=== PATIENT | female | born 1945 | race Caucasian/White ===

== ENCOUNTER 2020-01-14 19:10 | Observation (INO) | payer OTHER ==
--- OUTSIDE RECORDS SUMMARY | 2020-01-14 19:13 | XMS REPORT | Continuity of Care Document ---
:1945 Author Organization [facility] t Address [address] [place] [address] Care Team Providers Name Role Phone Tegan العلي Bee Attending Clinician Doctor Unassigned, Name Attending Clinician Unavailable Problems This patient has no known problems. Allergies, Adverse Reactions, Alerts This patient has no known allergies or adverse reactions. Medications This patient has no known medications. Procedures This patient has no known procedures. Encounters Start End Encounter Admission Attending Care Care Encounter Source Date/Time Date/Time Type Type Clinicians Facility Department ID 2019-08-24 2019-08-24 Emergency Benjamín Javed [facility] [id number] 13:50:22 14:22:00 Bee Dillon [id number] [place] [id number] [place] [id number] 2019-08-24 2019-08-24 Orders Doctor ANGEL [id number] 00:00:00 00:00:00 Only UnassignedGILL [id number] [place] [facility] [id number] Results This patient has no known results.
[2020-01-14 19:55] LABS: Protime INR 0.96
[2020-01-14 19:56] LABS: Absolute Lymphocytes (CBC) 2.5 K/uL (0.7-4.9); Basophils % 0.7 % (0-1.3); Hematocrit 42.1 % (36.0-45.0); Lymphocytes % 24.6 % (15.3-44.8); MPV 10.5 fL (7.6-11.3); RBC Red Blood Cell Count 4.43 M/uL (3.86-4.86)
--- NOTE | 2020-01-14 20:01 | EDPHYS ---
Physician Documentation [facility] Name: Kacie Regalado Age: 75 yrs Sex: Female : 1945 Arrival Date: 01/14/2020 Time: 19:12 Bed 5 Private MD: ED Physician Felipe Mckeon HPI: 01/13 19:48 This 75 yrs old Female presents to ER via EMS with complaints of chest pain. nuno 19:48 The patient or guardian reports chest pain that is located primarily in the substernal nuno area, anterior chest wall. Onset: 2 hour(s) ago. The pain radiates to. Associated signs and symptoms: The patient has no apparent associated signs or symptoms. The chest pain is described as a heaviness, a pressure. Duration: The patient or guardian reports a single episode, that is still ongoing. Severity of pain: At its worst the pain was mild moderate in the emergency department the pain is unchanged. It is unknown whether or not the patient has had similar symptoms in the past. Historical: - Allergies: 19:22 No Known Allergies; em - Home Meds: 19:22 Lipitor Oral [Active]; Plavix Oral [Active]; em - PMHx: 19:22 Hyperlipidemia; Hypertension; em - PSHx: 19:22 Heart stents; em - Immunization history:: Adult Immunizations up to date. - Social history:: Smoking status: Patient reports the use of cigarette tobacco products, smokes one-half pack cigarettes per day. - Family history:: not pertinent. ROS: 19:48 Constitutional: Negative for fever, chills, and weight loss, Eyes: Negative for injury, nuno pain, redness, and discharge, ENT: Negative for injury, pain, and discharge, Neck: Negative for injury, pain, and swelling, Respiratory: Negative for shortness of breath, cough, wheezing, and pleuritic chest pain, Abdomen/GI: Negative for abdominal pain, nausea, vomiting, diarrhea, and constipation, Back: Negative for injury and pain, : Negative for injury, bleeding, discharge, and swelling, MS/Extremity: Negative for injury and deformity, Skin: Negative for injury, rash, and discoloration, Neuro: Negative for headache, weakness, numbness, tingling, and seizure, Psych: Negative for depression, anxiety, suicide ideation, homicidal ideation, and hallucinations, Allergy/Immunology: Negative for hives, rash, and allergies, Endocrine: Negative for neck swelling, polydipsia, polyuria, polyphagia, and marked weight changes. 19:48 Cardiovascular: Positive for chest pain. 19:48 Respiratory: Positive for shortness of breath, at rest. Exam: 19:48 Constitutional: This is a well developed, well nourished patient who is awake, alert, nuno and in no acute distress. Head/Face: Normocephalic, atraumatic. Eyes: Pupils equal round and reactive to light, extra-ocular motions intact. Lids and lashes normal. Conjunctiva and sclera are non-icteric and not injected. Cornea within normal limits. Periorbital areas with no swelling, redness, or edema. ENT: Nares patent. No nasal discharge, no septal abnormalities noted. Tympanic membranes are normal and external auditory canals are clear. Oropharynx with no redness, swelling, or masses, exudates, or evidence of obstruction, uvula midline. Mucous membranes moist. Neck: Trachea midline, no thyromegaly or masses palpated, and no cervical lymphadenopathy. Supple, full range of motion without nuchal rigidity, or vertebral point tenderness. No Meningismus. Chest/axilla: Normal chest wall appearance and motion. Nontender with no deformity. No lesions are appreciated. Respiratory: Lungs have equal breath sounds bilaterally, clear to auscultation and percussion. No rales, rhonchi or wheezes noted. No increased work of breathing, no retractions or nasal flaring. Abdomen/GI: Soft, non-tender, with normal bowel sounds. No distension or tympany. No guarding or rebound. No evidence of tenderness throughout. Back: No spinal tenderness. No costovertebral tenderness. Full range of motion. Female : Normal external genitalia. Skin: Warm, dry with normal turgor. Normal color with no rashes, no lesions, and no evidence of cellulitis. MS/ Extremity: Pulses equal, no cyanosis. Neurovascular intact. Full, normal range of motion. Neuro: Awake and alert, GCS 15, oriented to person, place, time, and situation. Cranial nerves II-XII grossly intact. Motor strength 5/5 in all extremities. Sensory grossly intact. Cerebellar exam normal. Normal gait. Psych: Awake, alert, with orientation to person, place and time. Behavior, mood, and affect are within normal limits. 19:48 Cardiovascular: Rate: tachycardic, Rhythm: regular, Pulses: Pulses are 4+ in bilateral radial, brachial, femoral, popliteal, posterior tibial and and dorsalis pedis arteries.. Heart sounds: normal, Edema: is not appreciated, JVD: is not appreciated. Vital Signs: 19:15 BP 147 / 44; Pulse 118; Resp 20; Temp 97.5; Pulse Ox 98% on R/A; Weight 92.08 kg; em Height 5 ft. 3 in. (160.02 cm); Pain 5/10; 19:27 BP 136 / 79; ll1 19:43 BP 138 / 64; Pulse 89; Resp 19; Pulse Ox 99% ; ll1 21:44 BP 115 / 66; Pulse 67; Resp 18; Pulse Ox 97% ; ll1 19:15 Body Mass Index 35.96 (92.08 kg, 160.02 cm) em MDM: 19:12 Patient medically screened. nuno 19:53 Differential diagnosis: abnormal EKG, anxiety, coronary artery disease pancreatitis, nuno pericarditis, stable angina, unstable angina. HEART Score: History: Moderately Suspicious (1), ECG: Non specific repolarization disturbance / LBTB / PM (1), Age: > 45 and < 65 years (1), Risk Factors: > or = 3 Risk factors for atherosclerotic disease (2), [Hypercholesterolemia] [Hypertension] [+ Family HX] [Obesity] Troponin: < or = 1 x Normal Limit (0). The patient was given aspirin in the Emergency Department. The patient's deep vein thrombosis risk score was calculated as follows: Total Score: 0. This patient was found to be at low risk for a deep vein thrombosis by using the Well's assessment criteria. The patient's pulmonary embolism risk score was calculated as follows: Total Score: 0-2 points. This patient was found to be at low risk for a pulmonary embolism by using the Well's assessment criteria. SUKHDEEP Risk Score: TOTAL SCORE = 0. Data reviewed: vital signs, nurses notes, lab test result(s), EKG, radiologic studies, plain films. Data interpreted: monitoring engineer: rate is 126 beats/min, rhythm is regular, Pulse oximetry: on room air is 99 %. Test interpretation: by ED physician or midlevel provider: ECG, plain radiologic studies. Counseling: I had a detailed discussion with the patient and/or guardian regarding: the historical points, exam findings, and any diagnostic results supporting the discharge/admit diagnosis, the presence of at least one elevated blood pressure reading (>120/80) during this emergency department visit, lab results, radiology results, the need for further work-up and treatment in the hospital. 01/13 19:23 Order name: Basic Metabolic Panel [facility] 01/13 19:23 Order name: CBC with Diff [facility] 01/13 19:23 Order name: LFT's; Complete Time: 20:22 [facility] 01/13 19:23 Order name: Magnesium; Complete Time: 20:22 [facility] 01/13 19:23 Order name: NT PRO-BNP; Complete Time: 20:22 [facility] 01/13 19:23 Order name: PT-INR; Complete Time: 21:25 [facility] 01/13 19:23 Order name: Troponin (emerg Dept Use Only); Complete Time: 20:22 [facility] 01/13 19:23 Order name: XRAY Chest (1 view); Complete Time: 20:22 [facility] 01/13 19:24 Order name: Basic Metabolic Panel; Complete Time: 20:22 [facility] 01/13 19:24 Order name: CBC with Automated Diff; Complete Time: 21:25 [facility] 01/13 19:46 Order name: TSH; Complete Time: 20:22 [facility] 01/13 19:46 Order name: Lipase; Complete Time: 20:22 [facility] 01/13 19:23 Order name: EKG; Complete Time: 19:24 [facility] 01/13 19:23 Order name: Cardiac monitoring; Complete Time: 19:27 [facility] 01/13 19:23 Order name: EKG - Nurse/Tech; Complete Time: 19:27 [facility] 01/13 19:23 Order name: IV Saline Lock; Complete Time: 19:27 [facility] 01/13 19:23 Order name: Labs collected and sent; Complete Time: 19:26 [facility] 01/13 19:23 Order name: O2 Per Protocol; Complete Time: 19:36 [facility] 01/13 19:23 Order name: O2 Sat Monitoring; Complete Time: 19:26 [facility] Administered Medications: 20:02 Drug: Pepcid 20 mg Route: IVP; Site: right forearm; ll1 21:50 Follow up: Response: No adverse reaction; RASS: Alert and Calm (0) ll1 20:03 Drug: Lopressor (metoprolol TARTRATE) 50 mg Route: PO; ll1 21:50 Follow up: Response: No adverse reaction; RASS: Alert and Calm (0) ll1 20:07 Drug: NS 0.9% 1000 ml Route: IV; Rate: 125 ml/hr; Site: right forearm; ll1 22:14 Follow up: IV Status: Infusion continued upon admission rv 20:07 Drug: Lovenox 1 mg/kg {Note: 92 mg.} Route: Sub-Q; Site: left upper abdomen; ll1 21:50 Follow up: Response: No adverse reaction; RASS: Alert and Calm (0) ll1 20:08 Drug: Lopressor 5 mg Route: IVP; Infused Over: 2 mins; Site: left forearm; ll1 21:50 Follow up: Response: No adverse reaction; RASS: Alert and Calm (0) ll1 Disposition: 01/14/20 20:00 Hospitalization ordered by Diego Sotelo for Observation. Preliminary diagnosis are Atrial fibrillation and flutter - 2;1 flutter, Other chest pain. - Bed requested for Telemetry/MedSurg (observation). - Status is Observation. rv - Condition is Stable. - Problem is new. - Symptoms have improved. Signatures: Dispatcher [employer] EDMeghan Elmore RN RN Felipe Franco MD MD cha Munoz, Edgar RN Mason Reagan PA PA [id number] Gopal Leal RN RN rv Lewis, Lynsay RN RN ll1 Corrections: (The following items were deleted from the chart) 21:42 20:00 Hospitalization Ordered by Rafi Vallejo DO for Observation. Preliminary nuno diagnosis is Atrial fibrillation and flutter - 2;1 flutter; Other chest pain. Bed requested for Telemetry/MedSurg (observation). Status is Observation. Condition is Stable. Problem is new. Symptoms have improved. nuno 22:03 21:42 01/14/2020 20:00 Hospitalization Ordered by Diego Sotelo MD for Observation. Preliminary diagnosis is Atrial fibrillation and flutter - 2;1 flutter; Other chest pain. Bed requested for Telemetry/MedSurg (observation). Status is Observation. Condition is Stable. Problem is new. Symptoms have improved. nuno 22:24 22:03 01/14/2020 20:00 Hospitalization Ordered by Diego Sotelo MD for Observation. rv Preliminary diagnosis is Atrial fibrillation and flutter - 2;1 flutter; Other chest pain. Bed requested for Telemetry/MedSurg (observation). Status is Observation. Condition is Stable. Problem is new. Symptoms have improved. mw
--- NOTE | 2020-01-14 20:01 | ER ---
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 Coronavirus screen: Client denies travel out of the [place] in the last 14 days. Ebola Screen: Patient negative for fever greater than or equal to 101.5 degrees Fahrenheit, and additional compatible Ebola Virus Disease symptoms Patient denies exposure to infectious person. Patient denies travel to an Ebola-affected area in the 21 days before illness onset. No symptoms or risks identified at this time. Initial Sepsis Screen: Does the patient meet any 2 criteria? HR > 90 bpm. Does the patient have a suspected source of infection? No. Patient's initial sepsis screen is negative. Risk Assessment: Do you want to hurt yourself or someone else? Patient reports no desire to harm self or others. Onset of symptoms was January 14, 2020. 19:15 Method Of Arrival: EMS: [facility] em 19:15 Acuity: SHANICE 2 em Historical: - Allergies: 19:22 No Known Allergies; em - Home Meds: 19:22 Lipitor Oral [Active]; Plavix Oral [Active]; em - PMHx: 19:22 Hyperlipidemia; Hypertension; em - PSHx: 19:22 Heart stents; em - Immunization history:: Adult Immunizations up to date. - Social history:: Smoking status: Patient reports the use of cigarette tobacco products, smokes one-half pack cigarettes per day. - Family history:: not pertinent. Screenin:11 Abuse screen: Denies threats or abuse. Denies injuries from another. Nutritional rv screening: No deficits noted. Tuberculosis screening: No symptoms or risk factors identified. Fall Risk None identified. Assessment: 19:43 General: Appears in no apparent distress. Behavior is calm, cooperative, appropriate ll1 for age. Pain: Complains of pain in chest Pain radiates to left arm Quality of pain is described as pressure. Neuro: No deficits noted. Cardiovascular: Heart tones S1 S2 Capillary refill < 3 seconds Clubbing of nail beds is absent Patient's skin is warm and dry. Pulses are all present. Rhythm is regular. Respiratory: No deficits noted. GI: No deficits noted. Vital Signs: 19:15 BP 147 / 44; Pulse 118; Resp 20; Temp 97.5; Pulse Ox 98% on R/A; Weight 92.08 kg; em Height 5 ft. 3 in. (160.02 cm); Pain 5/10; 19:27 BP 136 / 79; ll1 19:43 BP 138 / 64; Pulse 89; Resp 19; Pulse Ox 99% ; ll1 21:44 BP 115 / 66; Pulse 67; Resp 18; Pulse Ox 97% ; ll1 19:15 Body Mass Index 35.96 (92.08 kg, 160.02 cm) em ED Course: 19:12 Patient arrived in ED. sg 19:12 Felipe Mckeon MD is Attending Physician. nuno 19:15 Maintain EMS IV. Dressing intact. Good blood return noted. Site clean \T\ dry. Gauge \T\ em site: 20 R FA. 19:20 Triage completed. em 19:22 Arm band placed on. em 19:26 Taisha Adkins, MARCUS is Primary Nurse. ll1 19:30 Initial lab(s) drawn, by me, sent to lab. em 19:59 Rafi Vallejo DO is Hospitalizing Provider. nuno 20:12 XRAY Chest (1 view) In Process Unspecified. EDMS 21:00 Patient has correct armband on for positive identification. general intern on. Pulse rv ox on. NIBP on. 21:42 Diego Sotelo MD is Hospitalizing Provider. nuno 22:11 No provider procedures requiring assistance completed. IV is patent, with fluids rv infusing freely, Patient admitted, IV remains in place. Administered Medications: 20:02 Drug: Pepcid 20 mg Route: IVP; Site: right forearm; ll1 21:50 Follow up: Response: No adverse reaction; RASS: Alert and Calm (0) ll1 20:03 Drug: Lopressor (metoprolol TARTRATE) 50 mg Route: PO; ll1 21:50 Follow up: Response: No adverse reaction; RASS: Alert and Calm (0) ll1 20:07 Drug: NS 0.9% 1000 ml Route: IV; Rate: 125 ml/hr; Site: right forearm; ll1 22:14 Follow up: IV Status: Infusion continued upon admission rv 20:07 Drug: Lovenox 1 mg/kg {Note: 92 mg.} Route: Sub-Q; Site: left upper abdomen; ll1 21:50 Follow up: Response: No adverse reaction; RASS: Alert and Calm (0) ll1 20:08 Drug: Lopressor 5 mg Route: IVP; Infused Over: 2 mins; Site: left forearm; ll1 21:50 Follow up: Response: No adverse reaction; RASS: Alert and Calm (0) ll1 Outcome: 20:00 Decision to Hospitalize by Provider. nuno 22:14 Admitted to Med/surg accompanied by tech, via wheelchair, room 212, Other sbar, ekg rv Report called to abigail watkins 22:14 Condition: good 22:14 Instructed on the need for admit. 22:24 Patient left the ED. rv Signatures: Dispatcher [employer] Lyle Fritz RN Felipe Gonzales MD MD cha Munoz, Edgar RN Gopal Newberry RN RN rv Lewis, Lynsay RN RN ll1
[2020-01-14 20:03] LABS: ALT/SGPT 25 U/L (12-78); AST/SGOT 21 U/L (15-37); Albumin 3.2 g/dL (3.4-5.0); Alkaline Phosphatase 61 U/L (45-117); BUN Blood Urea Nitrogen 12 mg/dL (7-18); Bicarbonate 26 mmol/L (21-32); Bilirubin Direct < 0.1 mg/dL (0-0.2); Bilirubin Total 0.2 mg/dL (0.2-1.0); Glucose Level 113 mg/dL (74-106); NT PRO-BNP 98 pg/mL (<125); Potassium 3.8 mmol/L (3.5-5.1); Sodium Level 145 mmol/L (136-145); Troponin (Emerg Dept Use Only) < 0.02 ng/mL (0.0-0.045)
[2020-01-14] MEDS ORDERED: METOPROLOL TAR 50 MG TAB ONE (20:06)
[2020-01-14] MEDS ORDERED: METOPROLOL TARTRATE 5 MG/5 ML INJ IV ONE (20:06)
[2020-01-14] MEDS ORDERED: ENOXAPARIN 100 MG/ML SYR SQ ONE (20:06)
[2020-01-14] MEDS ORDERED: NA CHLORIDE 0.9% 1,000 ML ONE (20:07)
[2020-01-14] MEDS ORDERED: FAMOTIDINE 20 MG/2 ML VIAL IV ONE (20:07)
[2020-01-14 20:19] LABS: Thyroid Stimulating Hormone 1.73 uIU/mL (0.360-3.740)
--- NOTE | 2020-01-14 20:19 | RAD REPORT ---
EXAM DESCRIPTION: Linda Single View01/14/2020 8:12 pm CLINICAL HISTORY: Chest pain COMPARISON: none FINDINGS: The lungs appear clear of acute infiltrate. The heart is normal size IMPRESSION: No acute abnormalities displayed
[2020-01-14 22:51] VITALS: BMI 36.9
[2020-01-14] MEDS ORDERED: MORPHINE 4 MG/ML SYR IV PRN (23:11)
[2020-01-14] MEDS ORDERED: ONDANSETRON 4 MG/2 ML VIAL IV PRN (23:11)
[2020-01-14] MEDS ORDERED: ACETAMINOPHEN 500 MG TAB PO PRN (23:11)
--- NOTE | 2020-01-15 02:16 | P.HP ---
Certification for Inpatient Patient admitted to: Observation With expected LOS: <2 Midnights Patient will require the following post-hospital care: None Practitioner: I am a practitioner with admitting privileges, knowledge of patient current condition, hospital course, and medical plan of care. Services: Services provided to patient in accordance with Admission requirements found in Title 42 Section 412.3 of the Code of Federal Regulations <Keegan Bull - Last Filed: 01/15/20 02:10> Patient History Date of Service: 01/15/20 Primary Care Provider: Dr. Baker Reason for admission: Chest Pain, New onset Atrial Flutter History of Present Illness: This is a 75-year-old female who presented to the emergency room for sudden onset of chest pain that started about 2 hr prior to her arrival in the emergency room. Patient stated that she had some anterior and substernal chest wall tightness with palpitations and shortness of breath. She stated that last week she also had another bout of shortness of breath as well but had resolved. Did not have chest pain at that time or palpitations. Patient came in via EMS with initial heart rate of 118, afebrile, with hypertension. Patient stated that EMS had given her 4 baby aspirin and nitroglycerin which significantly helped the chest pain and hypertension. Patient was worked up in the emergency room and found that she was in a flutter which she converted on her own without medication. Patient had a normal troponin and EKG post conversion was normal otherwise. Patient without significant electrolyte abnormality or white cell count or anemia. Patient does have history of hyperlipidemia, hypertension, heart stents in the past. Patient takes Lipitor, Plavix, aspirin daily but stated that she has been not as compliant with taking her daily aspirin. Patient stated that she has seen Dr. Amira Asencio in the past which is also the person has done or stents. Has not had follow up stress test or echocardiogram in quite some time. Medicine was consulted at that time for admission. Home medications list reviewed: Yes - Past Medical/Surgical History Diabetic: No -: [place] -: HTN -: Hyperlipedemia -: Cardiac Stent - Family History Family History: Reviewed- Non-Contributory - Family History Father -: Cancer, Blood disorders Mother -: Lung disease - Social History Smoking Status: Current every day smoker Counseled patient to stop smoking for: less than 10 minutes Smoking therapy provided: Yes Patient receptive to therapy: Yes Alcohol use: Yes CD- Drugs: No Caffeine use: Yes Place of Residence: Home <Keegan Bull - Last Filed: 01/15/20 02:10> Date of Service: 01/19/20 <Diego Sotelo - Last Filed: 01/19/20 10:40> Allergies No Known Allergies Allergy (Unverified 01/14/20 23:05) Home Medications: Aspirin [Ecotrin 81 MG] 81 mg PO DAILY 01/14/20 Clopidogrel Bisulfate [Plavix*] 75 mg PO DAILY 01/14/20 Lisinopril [Zestril] 20 mg PO DAILY 01/14/20 Simvastatin 40 mg PO DAILY 01/14/20 Metoprolol Tartrate [Lopressor] 25 mg PO BID 30 Days #60 tab 01/15/20 Review of Systems General: Unremarkable Eyes: Unremarkable ENT: Unremarkable Respiratory: Shortness of Breath Cardiovascular: Chest Pain, Palpitations Gastrointestinal: Unremarkable Genitourinary: Unremarkable Musculoskeletal: Unremarkable Neurological: Unremarkable Lymphatics: Unremarkable <Keegan Bull - Last Filed: 01/15/20 02:10> Physical Examination - Vital Signs Temperature: 97.8 F Blood Pressure: 136/61 Pulse: 66 Respirations: 16 Pulse Ox (%): 97 - Physical Exam General: Alert, In no apparent distress, Oriented x3, Cooperative HEENT: Normocephalic, PERRLA, Mucous membr. moist/pink, EOMI Neck: Supple, 2+ carotid pulse no bruit, JVD not distended, No Thyromegaly Respiratory: Clear to auscultation bilaterally, Normal air movement Cardiovascular: Normal pulses, Normal S1 S2, No gallops, No rubs, No murmurs, Edema (2+ pitting edema noted bilaterally to the lower extremities from the ankles to inferior knee) Capillary refill: <2 Seconds Gastrointestinal: Normal bowel sounds, Soft and benign, Non-distended, No ascites, No tenderness, No masses, No rebound, No guarding Musculoskeletal: No clubbing, No swelling, No contractures, No erythema, No tenderness, No warmth Integumentary: No rashes, No breakdown, No significant lesion, No tenderness/swelling, No erythema, No warmth, No cyanosis Neurological: Normal speech, Normal strength at 5/5 x4 extr, Normal tone, Cranial nerves 3-12 intact, Normal affect Lymphatics: No axilla or inguinal lymphadenopathy - Studies Laboratory Data (last 24 hrs) 01/14/20 19:30: Lipase 95 01/14/20 19:30: PT 11.3, INR 0.96 01/14/20 19:30: WBC 10.1, Hgb 14.4, Hct 42.1, Plt Count 217 01/14/20 19:30: Sodium 145, Potassium 3.8, BUN 12, Creatinine 0.94, Glucose 113 H, Magnesium 2.0, Total Bilirubin 0.2, AST 21, ALT 25, Alkaline Phosphatase 61 <Queta Bullshua - Last Filed: 01/15/20 02:10> Assessment and Plan - Problems (Diagnosis) (1) Atrial flutter Status: Acute Qualifiers: Atrial flutter type: typical Qualified Code(s): I48.3 - Typical atrial flutter (2) Chest pain Status: Acute Qualifiers: Chest pain type: unspecified Qualified Code(s): R07.9 - Chest pain, unspecified (3) Palpitation Status: Acute (4) Hyperlipidemia Status: Chronic Qualifiers: Hyperlipidemia type: unspecified Qualified Code(s): E78.5 - Hyperlipidemia, unspecified (5) Hypertension Status: Acute Qualifiers: Hypertension type: essential hypertension Qualified Code(s): I10 - Essential (primary) hypertension (6) History of coronary angioplasty with insertion of stent Status: Inactive - Plan 1. Patient will be monitored on telemetry bed and vital signs will continuously be checked throughout the night. 2. Cardiology will be consulted for new onset atrial flutter with chest pain 3. Patient on Lovenox therapeutically at this time secondary to a flutter and risk for stroke 4. Will continue to monitor blood pressure and will be treated for systolic greater than 160 diastolic greater than 110 5. Patient will be on beta-laura twice daily to ensure that the patient does not go back into atrial flutter 6. Patient will have trended cardiac enzymes throughout the night to ensure they do not elevated as well. 7. We will control pain as needed with narcotics and nitroglycerin if needed. If the patient remains in normal sinus rhythm and troponins are negative will wait for cardiology to consult for further evaluation to see if they want to further work patient up. Otherwise patient should be able to go home within the next 24 hr with beta-laura and possibly anticoagulation medications. Discharge Plan: Home Plan to discharge in: 24 Hours - Advance Directives Does patient have a Living Will: No Does patient have a Durable POA for Healthcare: No - Code Status/Comfort Care Code Status Assessed: No Critical Care: No Time Spent Managing Pts Care (In Minutes): 70 <Keegan Bull - Last Filed: 01/15/20 02:10> - Plan Plan of care reviewed, agree with plan as outlined above by Keegan Bull. Patient seen and examined, doing well, no longer having pain, trop neg x 2, continue to trend. Possible dc home later today, will discuss with cardiology. Please refer to my noted for further details <Diego Sotelo - Last Filed: 01/19/20 10:40>
[2020-01-15 04:03] LABS: Absolute Lymphocytes (CBC) 3.6 K/uL (0.7-4.9); Lymphocytes % 39.3 % (15.3-44.8); MPV 10.4 fL (7.6-11.3); RBC Red Blood Cell Count 4.11 M/uL (3.86-4.86)
[2020-01-15 04:23] LABS: Potassium 4.3 mmol/L (3.5-5.1)
[2020-01-15] MEDS ORDERED: ENOXAPARIN 100 MG/ML SYR SQ SCH (08:00)
[2020-01-15] MEDS ORDERED: PNEUMOCOCCAL VACCINE 0.5 ML IMVAC ONE (09:00)
[2020-01-15] MEDS ORDERED: METOPROLOL TAR 50 MG TAB PO SCH (09:00)
[2020-01-15] MEDS ORDERED: ASPIRIN EC 81 MG TAB PO SCH (09:00)
[2020-01-15 09:44] VITALS: O2SAT 98
[2020-01-15 12:06] VITALS: BP 119/51; TEMP 97.3
--- NOTE | 2020-01-15 14:31 | P.DS ---
Admission Date: 01/14/20 Discharge Date: 01/15/20 Primary Care Provider: Dr. Baker Disposition: ROUTINE DISCHARGE Discharge Condition: GOOD Reason for Admission: Chest Pain, New onset Atrial Flutter Consultations: Cardiology - Dr. Escalona Procedures: CXR (01/13): Lungs appear clear of acute infiltrate. Heart is normal size. Problem List Sinus tachycardiac, chest pain. Hypertension Hyperlipidemia History of coronary stent placement Brief History of Present Illness: 75yo female, who presented to ED for sudden onset of chest pain that began ~2hr prior to arrival. She had anterior and substernal chest wall tightness with palpitations and shortness of breath. She also reported a brief 30 min episode of severe shortness of breath after returning home from grocery shopping. Upon arrival by EMS, her initial heart rate was 118, and had some improvement of her pain after 4 baby aspirin and nitroglycerin were given. Workup in the ED reportedly revealed atrial flutter but she converted without medications/intervention. Initial troponin was negative. Hospital Course: Patient was admitted, troponins were trended and negative x3. Patient had resolution of her chest pain, and remained in normal sinus rhythm. Cardiology was consulted. Review of EKG in her chart is consistent with sinus tachycardia, no atrial flutter. A D-dimer was checked and was negative. Recommended that patient be discharged home to follow up with her audio visual design engineer for an outpatient stress test. Patient felt well and was in agreement with the plan. She was discharged home with a new prescription for metoprolol 25 mg b.i.d.. Vital Signs/Physical Exam: Temp Pulse Resp BP Pulse Ox 97.3 F 66 16 119/51 L 97 01/15/20 12:00 01/15/20 12:00 01/15/20 12:00 01/15/20 12:00 01/15/20 12:00 General: Alert, In no apparent distress, Oriented x3 HEENT: Mucous membr. moist/pink, Sclerae nonicteric Neck: Supple Respiratory: Clear to auscultation bilaterally, Normal air movement Cardiovascular: No edema, Regular rate/rhythm Gastrointestinal: Soft and benign, Non-distended, No tenderness Integumentary: No rashes Neurological: Normal speech, Normal affect Laboratory Data at Discharge: WBC 9.1 K/uL (4.3-10.9) 01/15/20 03:55 Hgb 13.2 g/dL (12.0-15.0) 01/15/20 03:55 Hct 40.0 % (36.0-45.0) 01/15/20 03:55 Plt Count 208 K/uL (152-406) 01/15/20 03:55 PT 11.3 SECONDS (9.5-12.5) 01/14/20 19:30 INR 0.96 01/14/20 19:30 Sodium 146 mmol/L (136-145) H 01/15/20 03:55 Potassium 4.3 mmol/L (3.5-5.1) 01/15/20 03:55 BUN 16 mg/dL (7-18) 01/15/20 03:55 Creatinine 1.05 mg/dL (0.55-1.3) 01/15/20 03:55 Glucose 109 mg/dL (74-106) H 01/15/20 03:55 Magnesium 2.0 mg/dL (1.8-2.4) 01/14/20 19:30 Total Bilirubin 0.2 mg/dL (0.2-1.0) 01/14/20 19:30 AST 21 U/L (15-37) 01/14/20 19:30 ALT 25 U/L (12-78) 01/14/20 19:30 Alkaline Phosphatase 61 U/L (45-117) 01/14/20 19:30 Troponin I < 0.02 ng/mL (0.0-0.045) 01/15/20 03:55 Triglycerides 101 mg/dL (<150) 01/15/20 03:55 Cholesterol 131 mg/dL (<200) 01/15/20 03:55 HDL Cholesterol 60 mg/dL (40-60) 01/15/20 03:55 Cholesterol/HDL Ratio 2.18 01/15/20 03:55 Lipase 95 U/L (73-393) 01/14/20 19:30 Home Medications: Aspirin [Ecotrin 81 MG] 81 mg PO DAILY 01/14/20 Clopidogrel Bisulfate [Plavix*] 75 mg PO DAILY 01/14/20 Lisinopril [Zestril] 20 mg PO DAILY 01/14/20 Simvastatin 40 mg PO DAILY 01/14/20 Metoprolol Tartrate [Lopressor] 25 mg PO BID 30 Days #60 tab 01/15/20 New Medications: Metoprolol Tartrate [Lopressor] 25 mg PO BID 30 Days #60 tab Patient Discharge Instructions: follow up with your audio visual design engineer in the next few weeks. New medication: metoprolol 25mg twice a day. continue your other home medications as prescribed. Diet: AHA Activity: Ad shayy Followup: NONE,NONE [Primary Care Provider] - Butch Escalona MD [ACTIVE - CAN ADMIT] - Time spent managing pt's care (in minutes): 45
--- NOTE | 2020-01-15 14:43 | CON ---
Date of Consultation: 01/15/2020 Reason For Consultation: Questionable atrial flutter. History Of Present Illness: 75-year-old female, presented to the emergency room with sudden onset of chest pain and short of breath left-sided substernal with palpitations. Also had another episode la st week but spontaneously resolved. When she came into the ER, heart rate was in the 130 range. She took 2 baby aspirin. She is chest-pain free now and she feels well. Does not have any further shor tness of breath. There is no orthopnea. The patient follows up with a marble installer supervisor at [place] and last stress test she had about 2 years ago. Past Medical History: Hypertension, dyslipidemia, coronary artery disease. Past Surgical History: Cardiac stent placement. Family History: No premature coronary artery disease or cancer. Social History: Smoker. Does not drink, use any drugs. Review of Systems: All systems reviewed were negative except for mentioned in the HPI. Physical Examination: Vital Signs: Temperature is 97.1, pulse 66, breathing at 16, blood pressure 141/91, saturating 99% o n room air. General: Pleasant elderly female, in no apparent distress. Head and Neck: Pupils are equal and reactive to light. Intact eye movements. No JVD. No cervical lymphadenopathy. Neck: Supple. Thyroid is not enlarged. Lungs: Clear to auscultation bilaterally. No rhonchi, wheezing, crackles. No accessory muscle use. Heart: Regular rate and rhythm. No extra sounds. Abdomen: Soft, nontender. Bowel sounds positive. No organomegaly. No masses or hernia. No rigidi ty or rebound. Extremities: No edema, clubbing, cyanosis. Intact pulses. Skin: No rash. Neurologic: Alert, awake, oriented x3. No acute focal deficits appreciated. Investigations: Cardiac enzymes x3 are negative. Rest of the labs were reviewed. Assessment And Plan: Tachycardia. I reviewed the EKG. It was sinus tachycardia. There is no atria l flutter. I recommend to check D-dimer. If this is positive, to obtain CT angiogram of the lungs, PE protocol to rule out the presence of pulmonary embolus. If the D-dimer is negative, the patient f rom the cardiac standpoint can be released after followup with her marble installer supervisor for an outpatient str ess test. She is currently pain free and asymptomatic. Thank you for the consult. /ESTHER Voice ID: [id number] Report ID: [id number]
== END 2020-01-15 15:35 | disposition home or self-care (01) ==
LOC: ER 19:10 → ERHOLD 21:52 → 2ND 22:14
PROVIDERS: ADMIT Hospitalist; ATTEND Hospitalist
DX: R07.9 Chest pain, unspecified (principal); R00.0 Tachycardia, unspecified; I10 Essential (primary) hypertension; E78.5 Hyperlipidemia, unspecified; Z95.5 Presence of coronary angioplasty implant and graft; Z20.828 Contact with and (suspected) exposure to other viral communicable diseases; Z79.02 Long term (current) use of antithrombotics/antiplatelets; Z79.82 Long term (current) use of aspirin; I25.2 Old myocardial infarction; F17.210 Nicotine dependence, cigarettes, uncomplicated
CPT/HCPCS: 93005; 85025 ×2; 80048 ×2; 36415; 83735; 85610; 80061; 85379; 80076; 84443; 84484 ×3; 83690; 83880; 71045; 96372; 99285; U0002; J1650; J7030; G0378

== ENCOUNTER 2020-11-14 08:45 | Day surgery (SDC) | payer OTHER ==
[2020-11-14] MEDS ORDERED: Ringers Lactate 1,000 ML IV ONE (09:31)
[2020-11-14] MEDS ORDERED: MIDAZOLAM HCL 2 MG/2 ML INJ ONE (12:04)
[2020-11-14] MEDS ORDERED: FENTANYL CITR 100 MCG/2 ML ONE (12:04)
[2020-11-14] MEDS ORDERED: LIDOCAINE 1% MPF 5 ML VIAL ONE (12:04)
[2020-11-14] MEDS ORDERED: propofoL 200 MG/20 ML VIAL IV ONE ×2 (12:04→12:39)
[2020-11-14] MEDS ORDERED: LIDOCAINE 1% W/EPI 1:100,000 MDV 20 ML VIAL ONE ×2 (12:23→13:02)
[2020-11-14] MEDS ORDERED: HYDROCODONE/APAP 5/325 MG TAB PO PRN (12:27)
--- NOTE | 2020-11-14 12:40 | P.BOP ---
Preoperative diagnosis: PMB Postoperative diagnosis: same and polyps Primary procedure: Hysteroscopy polypectomy d/c Supervisor [employer]: NONE,NONE Estimated blood loss: min Specimen: EMC, polyps Findings: polyps, irregular endometrium Anesthesia: MAC Complications: None Transferred to: Recovery Room Condition: Good
[2020-11-14 13:18] VITALS: BP 134/54; TEMP 97; O2SAT 97
--- NOTE | 2020-11-14 13:37 | OP ---
Date of Procedure: 11/14/2020 Surgeon: Dejah Ortiz MD [employer] Team Member: No assistants. Preoperative Diagnosis: Postmenopausal bleeding. Postoperative Diagnosis: Postmenopausal bleeding, endometrial polyps. Procedures Performed: Diagnostic hysteroscopy, polypectomy with MyoSure Lite, and D and C. Anesthesia: MAC plus paracervical block. Estimated Blood Loss: Minimal. Specimen: Endometrial curettings and polyp. Complications: No complications. Drains: No drains. Condition: Stable. Fluid deficit during the hysteroscopic resection was 180 mL of normal saline. Indications: The patient is a 75-year-old female, who presented with postmenopausal bleeding. This is a recurrence after 3 years. She also had some pelvic pain. The patient with history of coronary artery disease and stents placed in the past and also with hypertension. All medical clearance was done through Dr. Asencio who is her interactive video technician and she was counseled on the need for endometrial sampling. Her transvaginal ultrasound showed thickened endometrial lining. Sh milan was noncompliant 3 years ago for sampling as the bleeding had stopped, but since it is recurrent an d blood was noticed in the vaginal wall on the pelvic examination, this was confirmed to be definitel y gynecological in origin so the patient was counseled for sampling, consented for hysteroscopy and D and C at the hospital. Description Of Procedure: After informed consent was verified, she was taken back to the OR, placed in a supine fashion on the operating table. In the preoperative area, her [id number] was presen t and we did the preoperative consent again and all questions and answers were done appropriately to the patient's and her family's satisfaction. She was placed in a supine fashion on the operating table. Then, she was placed in a dorsal lithotom y position, difficult to externally rotate her right lower extremity at the hip, so carefully positio susana this. Then, vulva and vagina were prepped and draped in a sterile fashion. A speculum was place d to expose the cervix. Anterior lip injected with 1% lidocaine mixed with 1:100,000 epinephrine 10 mL here and 5 mL at the 4 and 8 o'clock positions of the cervicovaginal junction for a paracervical b lock. Diagnostic SlimLine hysteroscope was placed through the cervical canal into the uterine cavity . The polyps in the posterior wall and the irregularity were noted. There was also right lateral wa ll tiny abnormal sessile polyp and then vascular tissue. All these were planned to be resected, so c hanged over to the MyoSure resectoscope. Then, the MyoSure Lite was taken and once the machine was p rimed and set pressure was at 100 mmHg, then started the inflow, then used MyoSure Lite to completely resect all the endometrial tissue that needed to be resected all the polyps. Endometrial sampling w as performed adequately in all quadrants and all younger of the uterus. Once this was done, the entire polyps were removed at the end of the case. All the instruments were removed. Instrument, needle, and sponge counts were correct at the end of the case. The patient will come back in 1 week for foll owup. All the instruments were removed, recovered from anesthesia, and taken to PACU in stable condi tion. TWYLA/ESTHER Voice ID: [id number] Report ID: [id number]
[2020-11-14] MEDS ORDERED: METOPROLOL TAR 25 MG TAB PO SCH (21:00)
[2020-11-15] MEDS ORDERED: lisinopriL 20 MG TAB PO SCH (09:00)
[2020-11-15] MEDS ORDERED: HOME MED 1 EA UNK (Simvastatin [Simvastatin] 40 MG Tablet) PO SCH (09:00)
== END 2020-11-14 14:00 | disposition home or self-care (01) ==
LOC: OR 08:45
PROVIDERS: ATTEND Obstetrics & Gynecology
PROC: 0UDB7ZX Extraction of Endometrium, Via Natural or Artificial Opening, Diagnostic (ICD-10-PCS; 2020-11-14)
PROC: 0UJD8ZZ Inspection of Uterus and Cervix, Via Natural or Artificial Opening Endoscopic (ICD-10-PCS; 2020-11-14)
PROC: 0UB97ZX Excision of Uterus, Via Natural or Artificial Opening, Diagnostic (ICD-10-PCS; principal; 2020-11-14 11:00)
DX: N95.0 Postmenopausal bleeding (principal); I10 Essential (primary) hypertension; I25.10 Atherosclerotic heart disease of native coronary artery without angina pectoris; Z20.822 Contact with and (suspected) exposure to COVID-19
CPT/HCPCS: 88305; 58558; U0003; J2704 ×2; J2250; J3010; J7120

== ENCOUNTER 2023-06-20 09:05 | Day surgery (SDC) | payer OTHER ==
[2023-06-19 16:42] LABS: Absolute Eosinophils 0.1 K/uL (0-0.5); Absolute Lymphocytes (CBC) 1.9 K/uL (0.7-4.9); Absolute Monocytes 0.6 K/uL (0.1-1.3); Absolute Neutrophil 4.7 K/uL (1.8-8.0); Basophils % 0.6 % (0-1.3); Eosinophils % 1.3 % (0-4.4); Hematocrit 41.1 % (36.0-45.0); Hemoglobin 13.5 g/dL (12.0-15.0); Lymphocytes % 25.5 % (15.3-44.8); MCH 31.7 pg (27.0-35.0); MCHC 32.9 g/dL (32.0-36.0); MCV 96.1 fL (80-100); Monocytes % 8.3 % (3.3-12.3); Neutrophils % 64.3 % (41.7-73.7); Platelets 317 thou/uL (152-406); RBC Red Blood Cell Count 4.28 M/uL (3.86-4.86); Red Cell Distribution Width 12.8 % (12.1-15.2)
[2023-06-19 16:50] LABS: PT Prothrombin Time 11.1 SECONDS (9.5-12.5); PTT, Activated Partial Thromb 29.4 SECONDS (24.3-36.9); Protime INR 1.01
[2023-06-19 16:58] LABS: Anion Gap 7.1 mEq/L (5.0-15.0); Potassium 4.1 mEq/L (3.5-5.1)
[2023-06-20] MEDS ORDERED: Ringers Lactate 1,000 ML IV ONE (09:26)
[2023-06-20] MEDS ORDERED: CEFAZOLIN SODIUM 2 GM/VIAL ONE (09:26)
[2023-06-20] MEDS ORDERED: propofoL 200 MG/20 ML VIAL IV ONE (11:53)
[2023-06-20] MEDS ORDERED: LIDOCAINE 2% MPF 5 ML VIAL ONE (11:53)
[2023-06-20] MEDS ORDERED: FENTANYL CITR 100 MCG/2 ML ONE (11:53)
[2023-06-20] MEDS ORDERED: LIDOCAINE HCL/EPINEPHRINE 20 ML MDV ONE (11:58)
[2023-06-20] MEDS: HYDROCODONE/APAP 10/325 TAB ONE (13:36)
--- NOTE | 2023-06-20 14:37 | EKG ---
Test Date: 2023-06-19 Test Time: 16:31:32 Scalloper: KARINA MEASUREMENT RESULTS: Intervals: Rate: 81 TN: 146 QRSD: 66 QT: 366 QTc: 425 [place]: P: 65 TN: 146 QRS: 68 T: 50 INTERPRETIVE STATEMENTS: Normal sinus rhythm Normal ECG Compared to ECG 01/14/2020 19:17:29 Sinus tachycardia no longer present Electronically Signed On 06-20-23 14:35:38 CDT by Butch Escalona
--- NOTE | 2023-06-20 19:19 | P.OP ---
Preoperative diagnosis: LEFT lower extremity chronic necrotic wound Postoperative diagnosis: LEFT lower extremity chronic necrotic wound Primary procedure: Debridement of LEFT lower extremity chronic necrotic wound Anesthesia: MAC + Local Estimated blood loss: <5cc Specimen: Cultures, Debridment Tissue Findings: 8cm x 5cm x 1cm to fascia over muscle Complications: None Transferred to: Recovery Room Condition: Good
--- NOTE | 2023-06-20 21:45 | OP ---
Date of Procedure: 06/20/2023 Surgeon: Jer Guerin MD, Preoperative Diagnosis: lower extremity chronic necrotic wound. Postoperative Diagnosis: lower extremity chronic necrotic wound. Procedure: Debridement of left lower extremity chronic necrotic wound. Anesthesia: MAC plus local with 1% lidocaine with epinephrine. Estimated Blood Loss: Less than 5 cc. Specimen: Culture sent for both aerobic and anaerobic speciation and debridement tissue. Findings: 8 cm x 5 cm x 1 cm, extending to the fascia overlying the muscle of the left lower anterio r leg. Complications: None. Disposition: The patient was transferred to recovery room in good condition. Procedure In Detail: After informed consent was obtained, the patient was brought to the operating r oom, prepped and draped in the usual sterile fashion. After adequate anesthesia was achieved, I made a circular incision circumferentially around an area of obvious necrotic wound with previous suture material still contained within in the deep tissues, which has not dissolved or been removed. I kassandra casandra this abnormal necrotic tissue and cultured it, both aerobic and anaerobic speciation after it was removed and sent off for pathologic examination. It was removed using combination sharp dissection and electrocautery down to the fascia overlying the muscle. I cleansed the area thoroughly at this p oint and used electrocautery to achieve hemostasis quite easily. The area was then packed with the V juan soaked sterile dressing and a sterile dressing applied to the lower extremity. The patient tole rated the procedure without incident or complication, transferred to PACU in good condition. All cou nts were correct at the end of the case. TEX/ESTHER Voice ID: [id number] Report ID: [id number]
[2023-06-21 14:36] VITALS: BP 153/53; TEMP 98.8; O2SAT 96
== END 2023-06-20 14:11 | disposition home or self-care (01) ==
LOC: OR 09:05
PROVIDERS: ATTEND Surgery
PROC: 0JBP0ZZ Excision of Left Lower Leg Subcutaneous Tissue and Fascia, Open Approach (ICD-10-PCS; principal; 2023-06-20 11:45)
DX: S81.801D Unspecified open wound, right lower leg, subsequent encounter (principal); R52 Pain, unspecified; I96 Gangrene, not elsewhere classified
CPT/HCPCS: 11042; 93005; 87070; 85025; 80048; 36415; 87205; 85610; 88304; 85730; 87075; 87077; 87186; J2704; J2001; J3010; J7120